=== PATIENT | female | born 1955 | race Caucasian/White ===

== ENCOUNTER → 2019-02-25 07:42 | Outpatient (CLI) | payer OTHER | END | disposition home or self-care (01) | LOC: D.RT 07:42 | PROVIDERS: ATTEND Internal Medicine Pulmonary Disease | DX: J44.9 Chronic obstructive pulmonary disease, unspecified (principal) ==

== ENCOUNTER → 2019-07-07 12:27 | Outpatient (CLI) | payer OTHER | END | disposition home or self-care (01) | LOC: D.MRI 12:27 | PROVIDERS: ATTEND Orthopaedic Surgery | DX: M75.122 Complete rotator cuff tear or rupture of left shoulder, not specified as traumatic (principal) ==

== ENCOUNTER 2020-04-09 08:56 | Emergency (ER) | payer OTHER ==
[~2020-04-09] VITALS: Ht 165.1 cm; Wt 44.5 kg
[2020-04-09 09:00] VITALS: Ht 165.1 cm; Wt 44.5 kg
[2020-04-09] MEDS ORDERED: ADVAIR 250-501 EAC1 (09:01)
[2020-04-09 09:16] LABS: BASOPHILS 0.7 % (0-2); EOSINOPHILS 1.7 % (0-7); HEMATOCRIT 44.3 % (36.0-48.0); LYMPHOCYTES 39.2 % (15-50); MCHC 33.9 g/dL (31.0-37.0); MCV 94.5 fL (80.0-100.0); MEAN PLATELET VOLUME 9.9 fL (7.4-10.4); MONOCYTES 8.7 % (2-11); NEUTROPHILS 49.7 % (40-80); PLATELET COUNT 245 10x3/uL (130-400); RBC 4.69 10x6/uL (4.00-5.40); RDW 12.8 % (11.5-14.5); WBC 5.9 10x3/uL (4.8-10.8)
[2020-04-09 09:36] LABS: CALC OSMOLALITY 278 mosm/kg (275-300); CALCIUM 8.6 mg/dL (8.5-10.1); CARBON DIOXIDE 26.7 mmol/L (21.0-32.0); CHLORIDE - SERUM 105 mmol/L (98-107); GLUCOSE 87 mg/dL (74-106); POTASSIUM - SERUM 3.9 mmol/L (3.5-5.1); SODIUM 139 mmol/L (136-145); UREA NITROGEN 17 mg/dL (7-18); eGFR NON AFRICAN AMERICAN 59 mL/min (90-120)
[2020-04-09 10:08] LABS: ALBUMIN 3.6 g/dL (3.4-5.0); ALKALINE PHOSPHATASE 62 U/L (30-120); ALT (SGPT) 20 U/L (10-68); BILIRUBIN - TOTAL 0.41 mg/dL (0.2-1.3); CKMB 1.9 U/L (0.0-3.6); CREATINE KINASE 76 UL (21-215); PRO BNP 85 pg/mL (0-125); PROTEIN - SERUM 6.5 g/dL (6.4-8.2)
[2020-04-09 10:10] LABS: TROPONIN-I < 0.017 ng/mL (0.000-0.060)
[2020-04-09] MEDS ORDERED: ZPAK PO (11:04)
[2020-04-09 11:09] VITALS: BP 132/68
== END 2020-04-09 11:13 | disposition home or self-care (01) ==
LOC: D.ER 08:56
PROVIDERS: Family Medicine
DX: J44.1 Chronic obstructive pulmonary disease with (acute) exacerbation (principal); R06.00 Dyspnea, unspecified

== ENCOUNTER 2021-03-28 19:03 | Emergency (ER) | payer OTHER ==
[~2021-03-28] VITALS: Ht 165.1 cm; Wt 44.5 kg
[~2021-03-28 19:03] MED LIST: ADVAIR 250-501 EAC1; ZPAK PO
[2021-03-28 19:07] VITALS: Ht 165.1 cm; Wt 44.5 kg
[2021-03-28 19:29] LABS: BASOPHILS 0.3 % (0-2); EOSINOPHILS 0.4 % (0-7); HEMATOCRIT 45.9 % (36.0-48.0); HEMOGLOBIN 15.5 g/dL (12-16); LYMPHOCYTES 13.2 % (15-50); MCH 31.8 pg (26.0-34.0); MCHC 33.6 g/dL (31.0-37.0); MCV 94.5 fL (80.0-100.0); MEAN PLATELET VOLUME 8.1 fL (7.4-10.4); MONOCYTES 8.4 % (2-11); NEUTROPHILS 77.7 % (40-80); RBC 4.86 10x6/uL (4.00-5.40); RDW 14.1 % (11.5-14.5); WBC 10.1 10x3/uL (4.8-10.8)
[2021-03-28 19:31] LABS: PLATELET COUNT 295 10x3/uL (130-400)
[2021-03-28 19:43] LABS: CALC OSMOLALITY 290 mosm/kg (275-300); CALCIUM 8.5 mg/dL (8.5-10.1); CARBON DIOXIDE 29.1 mmol/L (21.0-32.0); CHLORIDE - SERUM 108 mmol/L (98-107); CREATININE - SERUM 0.8 mg/dL (0.6-1.3); GLUCOSE 115 mg/dL (74-106); POTASSIUM - SERUM 3.6 mmol/L (3.5-5.1); SODIUM 144 mmol/L (136-145); UREA NITROGEN 21 mg/dL (7-18); eGFR NON AFRICAN AMERICAN 76 mL/min (90-120)
[2021-03-28 20:00] LABS: ALBUMIN 3.6 g/dL (3.4-5.0); ALKALINE PHOSPHATASE 65 U/L (30-120); ALT (SGPT) 23 U/L (10-68); BILIRUBIN - TOTAL 0.15 mg/dL (0.2-1.3); CREATINE KINASE 45 UL (21-215); PRO BNP 110 pg/mL (0-125); PROTEIN - SERUM 6.8 g/dL (6.4-8.2)
[2021-03-28 20:06] LABS: TROPONIN-I < 0.017 ng/mL (0.000-0.060)
[2021-03-28] MEDS ORDERED: MEDROL DOSE PACK4 MG PO (20:58)
[2021-03-28] MEDS ORDERED: PROAIR HFA8.5 G1 INH (20:58)
[2021-03-28] MEDS ORDERED: ZPAK PO (20:58)
[2021-03-28 21:08] VITALS: BP 136/86
== END 2021-03-28 21:08 | disposition home or self-care (01) ==
LOC: D.ER 19:03
PROVIDERS: Family Medicine
DX: R06.02 Shortness of breath (principal); J44.9 Chronic obstructive pulmonary disease, unspecified; J40 Bronchitis, not specified as acute or chronic; Z99.81 Dependence on supplemental oxygen; F17.200 Nicotine dependence, unspecified, uncomplicated